=== PATIENT | male | born 1980 | race Caucasian/White ===

== ENCOUNTER 2020-11-29 08:59 | Emergency (ER) | payer OTHER ==
[~2020-11-29] VITALS: Ht 175.3 cm; Wt 117.9 kg
[~2020-11-29 08:59] MED LIST: SKELAXIN800 MG PO; TRAMADOL HCL50 MG PO
[2020-11-29] MEDS ORDERED: KETO10TA2 PO (11:18)
== END 2020-11-29 11:26 ==
LOC: ER 08:59
DX: R53.81 Other malaise (principal); T50.Z95A Adverse effect of other vaccines and biological substances, initial encounter; B34.9 Viral infection, unspecified; Z11.52 Encounter for screening for COVID-19